=== PATIENT | female | born 1975 | race African-American/Black ===

== ENCOUNTER 2018-12-30 03:54 | Emergency (ER) | payer SELFPAY ==
[~2018-12-30] VITALS: Ht 180.3 cm; Wt 148.8 kg
--- NOTE | 2018-12-30 04:06 | NUR ---
ED Nurse Note: Patient presents with complaints of cough x three days, history of COPD, took breathing medication 40 minutes ago. satting at 100% on room air.
[2018-12-30 04:07] VITALS: BP 160/83
[2018-12-30] MEDS ORDERED: PROMETHAZINE-C118 M1 ORAL (04:18)
[2018-12-30] MEDS ORDERED: PREDNISONE20 MG ORAL (04:18)
--- NOTE | 2018-12-30 04:18 | Emergency Room Report ---
History of Present Illness General Chief Complaint: Upper Respiratory Illness Source: Patient Present Illness HPI This is a 43-year-old female with a history of COPD. She is taking albuterol and Atrovent already. Also taking steroid inhaler. She presents with a cough for last 3 days. Nonproductive nature. No nausea no vomiting. Usually when this happened she had cough medicine and prednisone. Denies any other complaint. No chest pain. Worse with inspiration. Better with rest. Allergies: Coded Allergies: BENZONATATE (Verified Allergy, Unknown, 12/30/18) GUAIFENESIN (Verified Allergy, Unknown, 12/30/18) Patient History Past Medical History: see triage record, old chart reviewed, COPD Past Surgical History: none Pertinent Family History: none Social History: Denies: smoking Now: No Immunizations: other Reviewed Nursing Documentation: PMH: Agreed; PSxH: Agreed Nursing Documentation-PMH Past Medical History: No History, Except For Hx COPD: Yes Review of Systems Eye: Denies: eye pain, blurred vision ENT: Denies: ear pain, nose congestion, throat swelling Respiratory: Reports: cough; Denies: shortness of breath Cardiovascular: Denies: chest pain, palpitations Gastrointestinal: Denies: abdominal pain, diarrhea, nausea, vomiting Musculoskeletal: Denies: back pain, joint pain Skin: Denies: rash Neurological: Denies: headache, numbness Endocrine: Denies: increased thirst, increased urine Hematologic/Lymphatic: Denies: easy bruising All Other Systems: negative except mentioned in HPI Physical Exam Vital Signs Date Time Temp Pulse Resp B/P (MAP) Pulse Ox O2 Delivery O2 Flow Rate FiO2 12/30/18 03:59 98.8 94 18 160/83 (108) 98 Room Air Vitals with high blood pressure Sp02 EP Interpretation: reviewed, normal General Appearance: well appearing, no apparent distress, alert, obese Head: normocephalic, atraumatic Eyes: bilateral eye PERRL, bilateral eye EOMI ENT: hearing grossly normal, normal pharynx Neck: full range of motion, supple, no meningismus Respiratory: chest non-tender, lungs clear, normal breath sounds Cardiovascular #1: regular rate, rhythm, no murmur Gastrointestinal: normal bowel sounds, non tender, no mass, no organomegaly, no bruit, non-distended Musculoskeletal: back normal, gait/station normal, normal range of motion Psychiatric: mood/affect normal Medical Decision Making Diagnostic Impression: Primary Impression: COPD with exacerbation ER Course Patient presents with COPD exacerbation. No wheezing now. She does have coughing. Most likely viral in nature. No evidence of ACS, PE, dissection to name a few. Last Vital Signs Date Time Temp Pulse Resp B/P (MAP) Pulse Ox O2 Delivery O2 Flow Rate FiO2 12/30/18 04:07 94 18 Room Air 12/30/18 04:07 98.8 160/83 98 Status: unchanged Disposition: HOME, SELF-CARE Condition: Stable Scripts Codeine/Promethazine Hcl* (PROMETHAZINE-CODEINE SYRUP*) 118 Ml Syrup 5 ML ORAL Q6H PRN for For Cough, #118 ML 0 Refills Prov: Sridhar Chapa MD 12/30/18 Prednisone* (PREDNISONE*) 20 Mg Tablet 60 MG ORAL DAILY, #12 TAB Prov: Sridhar Chapa MD 12/30/18 Additional Instructions: Follow-up with your doctor in 7 days. Return if symptoms worsen. Sridhar Chapa MD Dec 30, 2018 04:18
--- NOTE | 2018-12-30 04:24 | NUR ---
ED Nurse Note: Patient tolerated medication administration well. Patient cleared for discharge by ERMD. Patient ID band removed. Patient exhibits no s/s of acute distress. Patient departed with all belongings.
[2018-12-30 04:25] VITALS: BP 160/83
== END 2018-12-30 04:25 | disposition home or self-care (01) ==
LOC: EMR 04:20
DX: J44.1 Chronic obstructive pulmonary disease with (acute) exacerbation (principal); Z88.8 Allergy status to other drugs, medicaments and biological substances
CPT/HCPCS: 99282; J7512